=== PATIENT | female | born 1960 | race Caucasian/White ===

== ENCOUNTER 2017-12-01 07:52 | Day surgery (SDC) | payer MEDICARE, MEDICAID ==
[2017-11-30 13:38] VITALS: BMI 23.6
--- NOTE | 2017-12-01 11:39 | OP ---
DATE OF PROCEDURE: 12/01/2017 PREOPERATIVE DIAGNOSES: 1. History of colonoscopy with polypectomy last year. 2. Colonoscopy with poor visualization last year. POSTOPERATIVE DIAGNOSES: 1. Two polyps, one in the cecum, one in the sigmoid removed by snare polypectomy, 5 mm in size. 2. Redundant colon with much better view of the colon on this procedure. RECOMMENDATIONS: Await pathology. If these are adenomas, repeat colonoscopy in 5 years. ANESTHESIA: TIVA. PROCEDURE IN DETAIL: After the patient was informed of the risks, benefits, possible complications o f endoscopy including perforation, bleeding, reaction to medication, and aspiration, informed consent was obtained. The endoscope was advanced through the colon to cecum. We did use external pressure as the colon was very redundant and about 2 liters of irrigation to completely clear the colon, still small polyps may have been missed. No large lesions were seen. The appendiceal orifice identified and documented photographically. The endoscope was then slowly removed the remainder of the colon. One polyp was found in the cecum and one in the sigmoid colon. These were removed by snare polypecto my and submitted to Pathology. Retroflexion was normal. The scope was removed. The patient tolerat ed the procedure without any complications.
[2017-12-01] MEDS ORDERED: Lidocaine 1% PF 5 ML VIAL ONE (16:25)
[2017-12-01] MEDS ORDERED: PROPOFOL 200 MG/20 ML VIAL ONE (16:25)
== END 2017-12-01 12:14 | disposition home or self-care (01) ==
LOC: SDC 07:52
PROVIDERS: ATTEND Internal Medicine Gastroenterology
PROC: 0DBH8ZX Excision of Cecum, Via Natural or Artificial Opening Endoscopic, Diagnostic (ICD-10-PCS; principal; 2017-12-01)
PROC: 0DBN8ZX Excision of Sigmoid Colon, Via Natural or Artificial Opening Endoscopic, Diagnostic (ICD-10-PCS; 2017-12-01)
DX: Z09 Encounter for follow-up examination after completed treatment for conditions other than malignant neoplasm (principal); D12.0 Benign neoplasm of cecum; D12.5 Benign neoplasm of sigmoid colon; Z88.1 Allergy status to other antibiotic agents; Z88.8 Allergy status to other drugs, medicaments and biological substances; Z98.890 Other specified postprocedural states; Z86.010 Personal history of colon polyps
CPT/HCPCS: 88305; J2001; J2704

== ENCOUNTER 2023-04-16 05:38 | Day surgery (SDC) | payer MEDICARE, MEDICAID ==
[2023-04-15 10:36] VITALS: BMI 23.6
[2023-04-16] MEDS ORDERED: Lidocaine 1% PF 5 ML VIAL ONE (07:55)
[2023-04-16] MEDS ORDERED: PROPOFOL 200 MG/20 ML VIAL ONE (07:55)
== END 2023-04-16 09:10 | disposition home or self-care (01) ==
LOC: SDC 05:38
PROVIDERS: ATTEND Internal Medicine Gastroenterology
PROC: 0DBM8ZZ Excision of Descending Colon, Via Natural or Artificial Opening Endoscopic (ICD-10-PCS; principal; 2023-04-16)
DX: D12.4 Benign neoplasm of descending colon (principal); K63.89 Other specified diseases of intestine; Z86.010 Personal history of colon polyps; Z88.1 Allergy status to other antibiotic agents
CPT/HCPCS: 88305; J2704